=== PATIENT | male | born 1925 | race Caucasian/White ===

== ENCOUNTER 2016-12-24 16:00 | Observation (INO) | payer MEDICARE ==
[~2016-12-24] VITALS: Ht 172.7 cm; Wt 56.2 kg
[~2016-12-24 16:00] MED LIST: ALBU8.5H2 INHALATION; CLOP75TA3 PO; EPIN0.3P2 IJ; LEVO25CA2 PO; LISI40TA PO; LOVA40TA PO; TAMS0.4C29 PO
[2016-12-24 16:14] VITALS: BP 131/71; PULSE 82; RESP 17; O2SAT 95
--- NOTE | 2016-12-24 16:26 | ED.REPORT ---
HPI-Trauma Minor / Fall Date of Service Dec 24, 2016 ED Provider: Nursing Notes Stated Complaint: GROUND LEVEL FALL Chief Complaint: Multiple Trauma/Fall Allergies: Coded Allergies: peanut (Verified Allergy, Severe, anaphylaxis, 12/24/16) Scheduled Albuterol HFA (Proair HFA) 8.5 Gm Hfa.aer.ad 2 PUFFS INHALATION Q4H Clopidogrel Bisulfate (Plavix) 75 Mg Tablet 75 MG PO DAILY Levothyroxine (Tirosint) 25 Mcg Capsule 25 MCG PO DAILY Lisinopril (Lisinopril) 40 Mg Tablet 40 MG PO DAILY Lovastatin (Lovastatin) 40 Mg Tablet 40 MG PO HS Tamsulosin ER (Tamsulosin ER) 0.4 Mg Cap.er.24h 0.4 MG PO DAILY Miscellaneous Medications Epinephrine (Epipen 2-Claude) 0.3 Mg/0.3 Ml Auto.injct 0.3 MG IJ General Time Seen by MD: 16:26 Past Medical History Past Medical History 1. Hyperlipidemia. 2. Peripheral artery disease. 3. Hypothyroidism. 4. Impaired glucose intolerance. 5. Post herpetic neuralgia due to history of shingles on the left lower quadrant area. 6. Hypertension. 7. Elevated PSA with previous biopsies negative. 8. History of distal esophageal stricture for which he underwent an EGD and dilatation by Dr. Parish Vail in June 2012. 9. Large hiatal hernia. 10. 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 Past Surgical History 1. Prostate biopsies in [place] that have been negative. 2. Esophageal dilatation and EGD, last one was in June 2012. 3. Bilateral hernia repair. He had bilateral mesh for his bilateral hernia repairs in his early 60s. 4. Colonoscopy that was negative. 5. Thoracic thymectomy many years ago in [place]. The thymectomy was also done when the patient was in his 60s. Smoking History Former Smoker Physical Exam Initial Vital Signs Vital Signs (First) Date Time Temp Pulse Resp B/P Pulse Ox O2 Delivery O2 Flow Rate FiO2 12/24/16 16:14 36.8 82 17 131/71 95 Room Air Discharge & Departure Referrals: Kapil Camejo MD (PCP) Alexsander Tenorio MD Dec 24, 2016 16:26
--- NOTE | 2016-12-24 16:31 | ED.REPORT ---
HPI-Trauma Minor / Fall Date of Service Dec 24, 2016 ED Provider: Sandra Mena History of Present Illness: fall at home. fell a week ago per his report. unknown cause of fall. Unable to answer questions. Family presents and states he has long hx of dementia, memory loss is nothing new. Family reports he fell on Saturday. Lives at home with Nursing Notes Stated Complaint: GROUND LEVEL FALL Chief Complaint: Multiple Trauma/Fall Nursing Notes Reviewed: Yes Allergies: Coded Allergies: peanut (Verified Allergy, Severe, anaphylaxis, 12/24/16) Scheduled Albuterol HFA (Proair HFA) 8.5 Gm Hfa.aer.ad 2 PUFFS INHALATION Q4H Clopidogrel Bisulfate (Plavix) 75 Mg Tablet 75 MG PO DAILY Levothyroxine (Tirosint) 25 Mcg Capsule 25 MCG PO DAILY Lisinopril (Lisinopril) 40 Mg Tablet 40 MG PO DAILY Lovastatin (Lovastatin) 40 Mg Tablet 40 MG PO HS Tamsulosin ER (Tamsulosin ER) 0.4 Mg Cap.er.24h 0.4 MG PO DAILY Miscellaneous Medications Epinephrine (Epipen 2-Claude) 0.3 Mg/0.3 Ml Auto.injct 0.3 MG IJ General Time Seen by MD: 16:26 Chief Complaint Fall Hx Obtained From: Patient Past Medical History Past Medical History Notes: dementia 12/24/2016 Past Medical History 1. Hyperlipidemia. 2. Peripheral artery disease. 3. Hypothyroidism. 4. Impaired glucose intolerance. 5. Post herpetic neuralgia due to history of shingles on the left lower quadrant area. 6. Hypertension. 7. Elevated PSA with previous biopsies negative. 8. History of distal esophageal stricture for which he underwent an EGD and dilatation by Dr. Parish Vail in June 2012. 9. Large hiatal hernia. 10. 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 Past Surgical History 1. Prostate biopsies in [place] that have been negative. 2. Esophageal dilatation and EGD, last one was in June 2012. 3. Bilateral hernia repair. He had bilateral mesh for his bilateral hernia repairs in his early 60s. 4. Colonoscopy that was negative. 5. Thoracic thymectomy many years ago in [place]. The thymectomy was also done when the patient was in his 60s. Smoking History Former Smoker Social History Alcohol Use: 1-3 per day Drug Use: Denies drug use Other Social History: Occupation lives with in 2 story house Ambulatory Status Independent Review of Systems Basic Review of Systems Cardiovascular: No chest pain, No dyspnea on exertion, No orthopnea, No parox noct dyspnea, No palpitations Hematologic: No bleeding, No bruising Physical Exam Initial Vital Signs Vital Signs (First) Date Time Temp Pulse Resp B/P Pulse Ox O2 Delivery O2 Flow Rate FiO2 12/24/16 16:14 36.8 82 17 131/71 95 Room Air Initial VS: Reviewed, Vital signs normal Head / Eyes: Atraumatic, Normocephalic, PERRL ENT: Mucous membranes moist, Conjunctiva normal, No scleral icterus Respiratory: Breath sounds normal, Clear to auscultation, No respiratory distress Cardiovascular: Regular rate & rhythm, Heart sounds normal, Intact distal pulses Abdomen / GI: Soft, Non-tender, No guarding, No rebound, No distention Back: No CVA tenderness Lymphatic: No lymphadenopathy Extremities: Vascular intact, Neuro intact, No swelling, No tenderness Skin: Warm, Dry, No cyanosis Neurologic: Alert, Oriented, Nonfocal Psychiatric: Mood/affect normal, Behavior normal, Normal thought content General/Constitutional: Awake, Alert, No acute distress, Well appearing, Well developed, Well hydrated, Well nourished, Cooperative, Not toxic appearing Neck: Atraumatic, Supple, No meningismus, Full range of motion, No adenopathy ENT: Atraumatic, Airway patent, Mucous membranes moist, Pharynx NL Respiratory / Chest: Atraumatic, Breath sounds NL, Breath sounds = bilat Cardiovascular: Heart rate NL, Regular rhythm, Heart sounds NL, No gallop Abdomen: Atraumatic, Soft, Non-tender Interpretation & Diagnostics Lab Results Interpretation Result Diagram: 12/24/16 1944 12/24/16 1716 Test 12/24/16 16:57 12/24/16 17:01 12/24/16 17:16 12/24/16 19:44 Hold Urine Received (Received) Urine Color Yellow (YELLOW) Urine Appearance Clear (CLEAR,HAZY) Urine pH 6.5 (5.0-8.0) Urine Specific [place] 1.010 (1.003-1.035) Urine Protein Negativemg/dL (NEG,TRACE) Urine Glucose (UA) Negativemg/dL (NEGATIVE) Urine Ketones Negativemg/dL (NEGATIVE) Urine Occult Blood Negative (NEGATIVE) Urine Nitrite Negative (NEGATIVE) Urine Bilirubin Negative (NEGATIVE) Urine Urobilinogen Normalmg/dL (NORMAL) Urine Leukocyte Esterase Trace (NEGATIVE) Urine RBC 0-2/hpf (0-2) Urine WBC 0-5/hpf (0-5) Urine Epithelial Cells Few/hpf (NONE-MOD) Urine Crystals None seen (NONE SEEN) Urine Bacteria Few/hpf (NONE-FEW) Urine Hyaline Casts None/lpf (NONE) Urine Granular Casts None seen (NONE SEEN) Urine Waxy Casts None seen (NONE SEEN) Urine Red Blood Cell Casts None seen (NONE SEEN) Urine White Blood Cell Casts None seen (NONE SEEN) Urine Mucus None seen (None Seen) Urine Trichomonas None seen (NONE SEEN) Urine Yeast None (NONE SEEN) Urinalysis Comment None Urine Culture Reflexed Indicated White Blood Count 8.1th/mm3 (3.8-10.1) Red Blood Count 2.40mil/mm3 (4.40-5.80) Mean Corpuscular Volume 101.7fL (81-100) Mean Corpuscular Hemoglobin 35.8pg (27.0-35.0) Mean Corpuscular Hemoglobin Concent 35.2% (32.0-37.0) Red Cell Distribution Width 16.3% (12.3-15.4) Platelet Count 273bil/L (150-400) Neutrophils (%) (Auto) 17.0% (40-74) Lymphocytes (%) (Auto) 76.4% (14-46) Monocytes (%) (Auto) 6.3% (4-12) Eosinophils (%) (Auto) 0% (0-5) Basophils (%) (Auto) 0.2% (0-3) Sodium Level 138mEq/L (134-144) Potassium Level 4.7mEq/L (3.5-5.2) Chloride Level 105mEq/L (97-108) Carbon Dioxide Level 18mmol/L (18-29) Blood Urea Nitrogen 24mg/dL (8-27) Creatinine 1.09mg/dL (0.76-1.27) Estimat Glomerular Filtration Rate 68mL/min (>59) Glucose Level 94mg/dL (60-99) Calcium Level 9.1mg/dL (8.5-10.1) Total Bilirubin 0.3mg/dL (0.0-1.2) Aspartate Amino Transf (AST/SGOT) 21U/L (0-50) Alanine Aminotransferase (ALT/SGPT) 18U/L (0-44) Alkaline Phosphatase 66U/L (25-160) Troponin T < 0.010ug/L (0.0-0.011) Pro-B-Type Natriuretic Peptide 148.4pg/mL (0-486) Total Protein 6.2g/dL (6.4-8.4) Albumin 3.8g/dL (3.4-5.0) Hemoglobin 8.1g/dL (13.8-17.2) Hematocrit 22.7% (41.0-50.0) X-Ray Chest Interpretation Chest Xray Interpretation: PROCEDURE: X-RAY CHEST, TWO VIEWS ([id number]) INDICATIONS: fall TECHNIQUE: 2 views of the chest were acquired. COMPARISON: [facility], CR, XR CHEST 2VW, 08/23/2015, 12:25. FINDINGS: Surgical changes and devices: Median sternotomy wires. Lungs and pleura: No pleural effusions or pneumothorax. Lungs are clear. Mediastinum: Mediastinal contours are normal. Heart size is normal. Bones and chest wall: No suspicious bony abnormalities. Soft tissues appear unremarkable. IMPRESSION: No acute cardiopulmonary disease process. Dictated by: Laly Roca MD, PhD on 12/24/2016 at 17:05 Approved by: Laly Roca MD, PhD on 12/24/2016 at 17:06 CT Head Interpretation PROCEDURE: CT BRAIN WITHOUT CONTRAST ([id number]) INDICATIONS: fall TECHNIQUE: Noncontrast 4.5 mm thick angled axial sections acquired from the foramen magnum to the vertex, with coronal reformats. COMPARISON: [facility], CT, BRAIN W/O CONTRAST, 03/05/2013, 12:58. FINDINGS: Image quality: Excellent. CSF spaces: Basal cisterns are patent. No extra-axial fluid collections. The ventricles are symmetric in size and shape. Brain: No intracranial bleeds or masses. There is cerebral volume loss for age, with resultant ventricular and sulcal prominence. There are periventricular and deep white matter chronic small vessel ischemic changes. There is intracranial internal carotid artery atherosclerosis. Skull and face: Calvarium and visualized facial bones appear intact, without suspicious lesions. Sinuses: Visualized sinuses and mastoids are clear. IMPRESSION: 1. No acute intracranial process. 2. Moderate to severe atrophy and chronic microvascular ischemic changes. Dictated by: Dipti Melgar M.D. on 12/24/2016 at 18:01 Approved by: Dipti Melgar M.D. on 12/24/2016 at 18:02 Re-Eval/Medical Decision Med Decision/Clinical Course 89 year old male presents to the ER for evualation of fall earlier today. Patient with significant worsening dementia. Lab work reveals significant anemia, posturals unavailable at this time. He is unsteady, weak on his feet. Physical therapy evualation ordered but did not receive in the ER. Family concerned he may need a higher level of care if falls can not be prevented. No sign of stroke or pneumonia Discharge & Departure Impression: Primary Impression: Fall from ground level Additional Impressions: Anemia Iron deficiency anemia type: chronic blood loss Dementia Skin tear Disposition: ADMITTED TO HOSPITAL Referrals: Kapil Camejo MD (PCP) EDSupervising Provider for APC: Yomi Douglas DO copies to: Kapil Camejo MD, Sue ARNP Dec 24, 2016 16:30
--- NOTE | 2016-12-24 17:09 | DRSVH ---
PROCEDURE: X-RAY CHEST, TWO VIEWS ([id number]) INDICATIONS: fall TECHNIQUE: 2 views of the chest were acquired. COMPARISON: [facility], CR, XR CHEST 2VW, 08/23/2015, 12:25. FINDINGS: Surgical changes and devices: Median sternotomy wires. Lungs and pleura: No pleural effusions or pneumothorax. Lungs are clear. Mediastinum: Mediastinal contours are normal. Heart size is normal. Bones and chest wall: No suspicious bony abnormalities. Soft tissues appear unremarkable. IMPRESSION: No acute cardiopulmonary disease process. Dictated by: Laly Roca MD, PhD on 12/24/2016 at 17:05 Approved by: Laly Roca MD, PhD on 12/24/2016 at 17:06
[2016-12-24] MEDS ORDERED: Lidocaine-Epi-Tetracaine Solution 3 mL Syringe TOPICAL ONE (17:15)
[2016-12-24 17:29] LABS: BASOPHILS % (AUTO) 0.2 % (0-3); EOSINOPHILS % (AUTO) 0 % (0-5); MONOCYTES % (AUTO) 6.3 % (4-12); Mean Corpuscular Hemoglobin 35.8 pg (27.0-35.0); Mean Corpuscular Volume 101.7 fL (81-100); Platelet Count 273 bil/L (150-400)
[2016-12-24 17:32] LABS: APPEARANCE,URINE CLEAR (CLEAR,HAZY); COLOR,URINE YELLOW (YELLOW); OCCULT BLOOD,URINE NEGATIVE (NEGATIVE); PH,URINE 6.5 (5.0-8.0); UROBILINOGEN,URINE NORMAL (NORMAL)
[2016-12-24 17:57] LABS: TROPONIN T < 0.010 ug/L (0.0-0.011)
--- NOTE | 2016-12-24 18:04 | DRSVH ---
PROCEDURE: CT BRAIN WITHOUT CONTRAST ([id number]) INDICATIONS: fall TECHNIQUE: Noncontrast 4.5 mm thick angled axial sections acquired from the foramen magnum to the vertex, with c oronal reformats. COMPARISON: [facility], CT, BRAIN W/O CONTRAST, 03/05/2013, 12:58. FINDINGS: Image quality: Excellent. CSF spaces: Basal cisterns are patent. No extra-axial fluid collections. The ventricles are symmet telly in size and shape. Brain: No intracranial bleeds or masses. There is cerebral volume loss for age, with resultant vent ricular and sulcal prominence. There are periventricular and deep white matter chronic small vessel ischemic changes. There is intracranial internal carotid artery atherosclerosis. Skull and face: Calvarium and visualized facial bones appear intact, without suspicious lesions. Sinuses: Visualized sinuses and mastoids are clear. IMPRESSION: 1. No acute intracranial process. 2. Moderate to severe atrophy and chronic microvascular ischemic changes. Dictated by: Dipti Melgar M.D. on 12/24/2016 at 18:01 Approved by: Dipti Melgar M.D. on 12/24/2016 at 18:02
[2016-12-24] MEDS ORDERED: Alum-Mag Hydrox-Simeth 30 mL Suspension PO PRN (20:00)
[2016-12-24] MEDS ORDERED: Ondansetron 2 mg/mL 2 mL Inj IVPUSH PRN (20:00)
[2016-12-24] MEDS ORDERED: Polyethylene Glycol (PEG) 17 Gm Powder PO PRN (20:00)
[2016-12-24] MEDS ORDERED: ALPR0.5T8 PO (21:05)
[2016-12-24] MEDS ORDERED: SERT25TA6 PO (21:05)
[2016-12-24 21:13] VITALS: BP 116/57; PULSE 64; RESP 16; O2SAT 98
[2016-12-24 21:34] VITALS: BP 128/60; PULSE 62; RESP 16; O2SAT 100
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
[2016-12-24 22:44] VITALS: PULSE 69
[2016-12-25] MEDS ORDERED: 0.9% Sodium Chloride 250 ML ONE (00:36)
[2016-12-25 00:53] VITALS: BP 135/68; PULSE 55; RESP 16
[2016-12-25 01:10] VITALS: BP 142/70; PULSE 56; RESP 16
[2016-12-25 03:54] VITALS: BP 145/60; PULSE 63; RESP 18
[2016-12-25 05:24] VITALS: BP 132/62; PULSE 65; RESP 18; O2SAT 98
[2016-12-25 09:04] VITALS: BP 144/60; PULSE 67; RESP 16; O2SAT 98
--- NOTE | 2016-12-25 13:49 | PCM.PNMED ---
Subjective Date of Service Dec 25, 2016 Subjective Patient seen and examined. Alert, but not oriented. Vitals stable. Exam Vital Signs Vital Sign - Last Date Time Temp Pulse Resp B/P Pulse Ox O2 Delivery O2 Flow Rate FiO2 12/25/16 09:04 36.5 67 16 144/60 98 Room Air Intake and Output 12/24/16 12/24/16 12/25/16 Cumulative From/Thru 15:00 23:00 07:00 12/24/16 16:14 - 12/25/16 06:21 Intake Total 400 ml 345 ml 745 ml Output Total 3 ml 3 ml Balance 400 ml 342 ml 742 ml Intake Oral 0 ml 0 ml IV Total 400 ml 45 ml 445 ml Packed Cells 300 ml 300 ml Output Stool Total 3 ml 3 ml # Voids 1 1 Exam General: No acute distress, well-developed, well-nourished, appropriately interactive Cardiovascular: Regular rate and rhythm with no murmurs, rubs, or gallops appreciated Pulmonary: Clear to auscultation bilaterally with no crackles, wheezes, or rhonchi. Normal respiratory effort with no use of accessory muscles. Abdomen: Bowel tones present. Soft, nontender, nondistended. No hepatosplenomegaly or masses appreciated. Extremities: Bilateral abrasions on arms wrapped in bandages. No lower extremity edema. Skin: Normal temperature, turgor, and texture; no rash, ulcers, or subcutaneous nodules appreciated. Lab and Diagnostics Result Diagram: 12/24/16194312/24/16 1716 X-Rays, CTs and MRIs X-RAY CHEST, TWO VIEWS IMPRESSION: No acute cardiopulmonary disease process Dictated by: Laly Roca MD, PhD on 12/24/2016 at 17:05 CT BRAIN WITHOUT CONTRAST IMPRESSION: 1. No acute intracranial process. 2. Moderate to severe atrophy and chronic microvascular ischemic changes. Dictated by: Dipti Melgar M.D. on 12/24/2016 at 18:01 Assessment & Plan Art Lee is an 89 year old man with past medical history significant for esophageal stricture, dementia, carotid stenosis who presented to the [facility] emergency department today due to 2 falls. Patient fell yesterday and then again today. Patient is quite demented and unable to provide any history and the entire history was obtained from the patient's and patient's daughter. Ground-level fall, present on admission, active -No obvious acute changes. -CT of head was negative for any acute intracranial abnormality -Patient did have notable abrasions on his bilateral extremities from the fall. -Physical therapy assessment -Social work consultation -Fall precautions Macrocytic anemia, present on admission, active -Patient's hemoglobin has been steadily declining over the last several measurements. - occult blood pending - as per family, pcp and family aware, considering his advanced dementia, they had decided to not pursue it. -pending B12 and folate levels. - will monitor hgb Dysphasia, present on admission, active -Speech therapy -Dysphagia diet. Back pain - Muscoskletal, chronic - tylenol prn Dementia, present on admission, active -We will order of 12.5 mg of Seroquel when necessary nightly for agitation -Continue sertraline Hypertension, present on admission, active -Continue outpatient medication Carotid stenosis, present on admission, active -Continue Plavix CODE STATUS: DO NOT RESUSCITATE/DO NOT INTUBATE Dispo: Evaluation of anemia, determine placement based on pt/ot eval. Discussed with family (daughter and ), who mentioned that patient has hard time keeping balance at home, and needs one on one assistance with everything. Patient's cognitive decline is extra stress on his (87 herself), and they want her to get good care. From my understanding, family is inclining towards comfort care at this point. Will get palliative care consult. VTE Prophylaxis: Sub-Q Heparin (Unfractionated) Resuscitation Status: DNR/DNI:Do Not Resuscitate/Intubate Time spent 35 mins Dante Reynoso MD Dec 25, 2016 13:49
[2016-12-25 17:13] VITALS: BP 123/61; PULSE 51; RESP 18; O2SAT 100
[2016-12-26 06:15] VITALS: BP 122/64; PULSE 68; RESP 16; O2SAT 97
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
[2016-12-26 09:08] LABS: BASOPHILS % (AUTO) 0.3 % (0-3); EOSINOPHILS % (AUTO) 0 % (0-5); MONOCYTES % (AUTO) 9.4 % (4-12); Mean Corpuscular Hemoglobin 33.1 pg (27.0-35.0); Mean Corpuscular Volume 96.2 fL (81-100); Platelet Count 248 bil/L (150-400)
[2016-12-26 09:13] VITALS: BP 119/73; PULSE 76; RESP 18; O2SAT 100
[2016-12-26 13:58] VITALS: BP 102/65; PULSE 70; RESP 18; O2SAT 100
--- NOTE | 2016-12-26 15:46 | PCM.DIMED ---
Discharge Instructions Date of Service Dec 26, 2016 Dates of Hospitalization Dec 24, 2016 at 20:44 Patient Instructions Patient Instructions Patient needs continued PT/OT/Dante Quiros MD Dec 26, 2016 15:46
--- NOTE | 2016-12-26 16:30 | PCM.PNMED ---
Subjective Date of Service Dec 26, 2016 Subjective Patient seen and examined. Doing good. Alert and oriented X 2. Vitals stable. Exam Vital Signs Vital Sign - Last Date Time Temp Pulse Resp B/P Pulse Ox O2 Delivery O2 Flow Rate FiO2 12/26/16 13:58 36.5 70 18 102/65 100 Room Air Intake and Output 12/25/16 12/25/16 12/26/16 Cumulative From/Thru 15:00 23:00 07:00 12/24/16 16:14 - 12/26/16 06:16 Intake Total 1040 ml 200 ml 1985 ml Output Total 3 ml Balance 1040 ml 200 ml 1982 ml Intake Oral 1040 ml 200 ml 1240 ml IV Total 445 ml Packed Cells 300 ml Output Stool Total 3 ml # Voids 5 9 15 # Bowel Movements 0 1 1 Exam General: No acute distress, well-developed, well-nourished, appropriately interactive Cardiovascular: Regular rate and rhythm with no murmurs, rubs, or gallops appreciated Pulmonary: Clear to auscultation bilaterally with no crackles, wheezes, or rhonchi. Normal respiratory effort with no use of accessory muscles. Abdomen: Bowel tones present. Soft, nontender, nondistended. No hepatosplenomegaly or masses appreciated. Extremities: Bilateral abrasions on arms wrapped in bandages. No lower extremity edema. Skin: Normal temperature, turgor, and texture; no rash, ulcers, or subcutaneous nodules appreciated. Lab and Diagnostics Result Diagram: 12/26/16 0857 12/26/16 0857 X-Rays, CTs and MRIs X-RAY CHEST, TWO VIEWS IMPRESSION: No acute cardiopulmonary disease process Dictated by: Laly Roca MD, PhD on 12/24/2016 at 17:05 CT BRAIN WITHOUT CONTRAST IMPRESSION: 1. No acute intracranial process. 2. Moderate to severe atrophy and chronic microvascular ischemic changes. Dictated by: Dipti Melgar M.D. on 12/24/2016 at 18:01 Assessment & Plan Art Lee is an 89 year old man with past medical history significant for esophageal stricture, dementia, carotid stenosis who presented to the [facility] emergency department today due to 2 falls. Patient fell yesterday and then again today. Patient is quite demented and unable to provide any history and the entire history was obtained from the patient's and patient's daughter. Goals of care - family interested in comfort care for patient - palliative care consulted, appreciate recs Ground-level fall, present on admission, resolved -No obvious acute changes. -CT of head was negative for any acute intracranial abnormality -Patient did have notable abrasions on his bilateral extremities from the fall. -Physical therapy assessment -Social work consultation -Fall precautions Macrocytic anemia, present on admission, active - Hgb stable - occult blood pending - as per family, pcp and family aware, considering his advanced dementia, they had decided to not pursue it. -pending B12 and folate levels. - will monitor hgb Dysphasia, present on admission, active -Speech therapy -Dysphagia diet. Back pain - Muscoskletal, chronic - tylenol prn Dementia, present on admission, active -We will order of 12.5 mg of Seroquel when necessary nightly for agitation -Continue sertraline Hypertension, present on admission, active -Continue outpatient medication Carotid stenosis, present on admission, active -Continue Plavix CODE STATUS: DO NOT RESUSCITATE/DO NOT INTUBATE Discussed with family (daughter and ), who mentioned that patient has hard time keeping balance at home, and needs one on one assistance with everything. Patient's cognitive decline is extra stress on his (87 herself), and they want her to get good care. Patient's family arranging living facility for patient. VTE Prophylaxis: Sub-Q Heparin (Unfractionated) Resuscitation Status: DNR/DNI:Do Not Resuscitate/Intubate Time spent 35 mins Dante Reynoso MD Dec 26, 2016 16:30
[2016-12-26 19:45] VITALS: BP 94/57; PULSE 64; RESP 16; O2SAT 100
[2016-12-27 02:13] LABS: Vitamin B12 484 pg/mL (211-946)
[2016-12-27 04:35] VITALS: BP 98/60; RESP 16; O2SAT 98
[2016-12-27 08:10] VITALS: BP 105/57; PULSE 59; RESP 16; O2SAT 99
[2016-12-27] MEDS ORDERED: LISI40TA PO (11:28)
[2016-12-27 11:52] VITALS: BP 103/51; PULSE 59; RESP 18; O2SAT 96
--- NOTE | 2016-12-27 12:08 | PCM.PNMED ---
Subjective Date of Service Dec 27, 2016 Subjective Patient seen and examined today. Pleasant as usual. Vitals stable. Exam Vital Signs Vital Sign - Last Date Time Temp Pulse Resp B/P Pulse Ox O2 Delivery O2 Flow Rate FiO2 12/27/16 11:52 36.8 59 18 103/51 96 Room Air Intake and Output 12/26/16 12/26/16 12/27/16 Cumulative From/Thru 15:00 23:00 07:00 12/24/16 16:14 - 12/27/16 04:35 Intake Total 640 ml 200 ml 2825 ml Output Total 600 ml 300 ml 903 ml Balance 40 ml -100 ml 1922 ml Intake Oral 640 ml 200 ml 2080 ml IV Total 445 ml Packed Cells 300 ml Output Urine Total 600 ml 300 ml 900 ml Stool Total 3 ml # Voids 15 # Bowel Movements 2 1 4 Exam General: No acute distress, well-developed, well-nourished, appropriately interactive Cardiovascular: Regular rate and rhythm with no murmurs, rubs, or gallops appreciated Pulmonary: Clear to auscultation bilaterally with no crackles, wheezes, or rhonchi. Normal respiratory effort with no use of accessory muscles. Abdomen: Bowel tones present. Soft, nontender, nondistended. No hepatosplenomegaly or masses appreciated. Extremities: Bilateral abrasions on arms wrapped in bandages. No lower extremity edema. Skin: Normal temperature, turgor, and texture; no rash, ulcers, or subcutaneous nodules appreciated. Lab and Diagnostics Result Diagram: 12/26/16 0857 12/26/16 0857 X-Rays, CTs and MRIs X-RAY CHEST, TWO VIEWS IMPRESSION: No acute cardiopulmonary disease process Dictated by: Laly Roca MD, PhD on 12/24/2016 at 17:05 CT BRAIN WITHOUT CONTRAST IMPRESSION: 1. No acute intracranial process. 2. Moderate to severe atrophy and chronic microvascular ischemic changes. Dictated by: Dipti Melgar M.D. on 12/24/2016 at 18:01 Assessment & Plan Art Lee is an 89 year old man with past medical history significant for esophageal stricture, dementia, carotid stenosis who presented to the [facility] emergency department today due to 2 falls. Patient fell yesterday and then again today. Patient is quite demented and unable to provide any history and the entire history was obtained from the patient's and patient's daughter. Goals of care - family interested in comfort care for patient - palliative care consulted, appreciate recs Ground-level fall, present on admission, resolved -No obvious acute changes. -CT of head was negative for any acute intracranial abnormality -Patient did have notable abrasions on his bilateral extremities from the fall. -Physical therapy assessment -Social work consultation -Fall precautions Macrocytic anemia, present on admission, active - Hgb stable - occult blood pending - as per family, pcp and family aware, considering his advanced dementia, they had decided to not pursue it. -pending B12 and folate levels. - will monitor hgb Dysphasia, present on admission, active -Speech therapy -Dysphagia diet. Back pain - Muscoskletal, chronic - tylenol prn Dementia, present on admission, active -We will order of 12.5 mg of Seroquel when necessary nightly for agitation -Continue sertraline Hypertension, present on admission, active - Blood pressure in lower range 0 will decrease lisinopril to 20 Carotid stenosis, present on admission, active -Continue Plavix CODE STATUS: DO NOT RESUSCITATE/DO NOT INTUBATE Dispo : Lili thurston. VTE Prophylaxis: Sub-Q Heparin (Unfractionated) VTE Mechanical Devices: Intermittant Pneumatic CD Resuscitation Status: DNR/DNI:Do Not Resuscitate/Intubate Time spent 35 mins Dante Reynoso MD Dec 27, 2016 12:08
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
== END 2016-12-27 14:41 ==
LOC: EDBD 16:00 → SED 16:00 → OSC 20:44
PROVIDERS: ADMIT Hospitalist; ATTEND Internal Medicine
DX: F03.90 Unspecified dementia, unspecified severity, without behavioral disturbance, psychotic disturbance, mood disturbance, and anxiety (principal); E78.5 Hyperlipidemia, unspecified; I73.9 Peripheral vascular disease, unspecified; R13.10 Dysphagia, unspecified; D53.9 Nutritional anemia, unspecified; E03.9 Hypothyroidism, unspecified; E74.39 Other disorders of intestinal carbohydrate absorption; I10 Essential (primary) hypertension; B02.29 Other postherpetic nervous system involvement; K44.9 Diaphragmatic hernia without obstruction or gangrene; Z86.73 Personal history of transient ischemic attack (TIA), and cerebral infarction without residual deficits; Z79.891 Long term (current) use of opiate analgesic; Z79.02 Long term (current) use of antithrombotics/antiplatelets; Z79.899 Other long term (current) drug therapy; Z91.81 History of falling
CPT/HCPCS: 36415; 70450; 71020; 80048; 80053; 81000; 82274; 82607; 82746; 83880; 84484; 85014; 85018; 85025; 86922; 87086; 92610; 93005; 97161; 99285; G0378; J7050